=== PATIENT | female | born 1950 | race Caucasian/White ===

== ENCOUNTER 2021-03-01 12:50 | Day surgery (SDC) | payer MEDICARE, OTHER ==
[~2021-03-01] VITALS: Ht 165.1 cm; Wt 82.5 kg
[2021-03-01] MEDS ORDERED: LEVO-T100 MC1 PO (13:07)
[2021-03-01] MEDS ORDERED: LOSA25 (13:22)
--- NOTE | 2021-03-01 14:54 | NUR ---
03/01/21 1454 Sharyn Castillo LATE ENTRY----DURING THE PROCEDURE THE PATIENT WAS WRETCHING AND ZOFRAN WAS GIVEN. SHE DID NOT HAVE ANY VOMIT BUT DID HAVE SOME CLEAR MUCOUS THAT WAS SUCTIONED. THE WRETCHING STOPPED AND PROCEDURE WAS COMPLETED. AT THE END OF THE PROCEDURE THE PATIENT WAS JUST WAKING UP AND SHE VOMITED UP LARGE AMOUNT OF YELLOW BILE. SHE WAS SUCTIONED AND ON HER SIDE AND OXYGEN SATURATIONS STAYED STEADY AND STABLE WITH NO DROP.
== END 2021-03-01 14:50 | disposition home or self-care (01) ==
LOC: ORSCSDS 12:50
PROVIDERS: Surgery
PROC: 0DBP8ZX Excision of Rectum, Via Natural or Artificial Opening Endoscopic, Diagnostic (ICD-10-PCS; principal; 2021-03-01 14:00)
DX: Z12.11 Encounter for screening for malignant neoplasm of colon (principal); K62.1 Rectal polyp; I10 Essential (primary) hypertension; E03.9 Hypothyroidism, unspecified; E66.9 Obesity, unspecified; Z68.30 Body mass index [BMI] 30.0-30.9, adult; Z87.891 Personal history of nicotine dependence; Z79.899 Other long term (current) drug therapy
CPT/HCPCS: 88305; J2405; J2704; J7120

== ENCOUNTER 2022-04-05 10:00 | Day surgery (SDC) | payer MEDICARE, OTHER ==
[~2022-04-05] VITALS: Ht 165.1 cm; Wt 78.1 kg
[~2022-04-05 10:00] MED LIST: LEVO-T100 MC1 PO; LOSA25
[2022-04-05] MEDS ORDERED: CLIMARA1 EACH (10:35)
--- NOTE | 2022-04-05 11:38 | NUR ---
04/05/22 1138 Bruno Araiza 0.15 ML OF EPI 1MG /ML ADDED TO 30ML BUPIVICAINE 0.5% TO CREATE A SOLUTION OF BUPIVICAINE 0.5% WITH EPI 1:200,000.
--- NOTE | 2022-04-05 12:54 | NUR ---
04/05/22 1254 Philly Soto REPORT FROM CHERYL CARRASCO. PT REPORTS CONTINUING NAUSEA. MEDICATED WITH REGLAN 10MG IVP PER ORDERS. PT DENIES FURTHER NEEDS. VSS. WILL CONTINUE TO MONITOR.
== END 2022-04-05 13:23 | disposition home or self-care (01) ==
LOC: ORSCSDS 10:00
PROVIDERS: Podiatrist Foot & Ankle Surgery
PROC: 0QSK04Z Reposition Left Fibula with Internal Fixation Device, Open Approach (ICD-10-PCS; principal; 2022-04-05 11:45)
DX: S82.62XA Displaced fracture of lateral malleolus of left fibula, initial encounter for closed fracture (principal); I10 Essential (primary) hypertension; Z87.891 Personal history of nicotine dependence; E03.9 Hypothyroidism, unspecified; Z79.899 Other long term (current) drug therapy
CPT/HCPCS: A9270; C1713; J0690; J1100; J2405; J2704; J2765; J3010

== ENCOUNTER 2022-11-13 08:14 | Day surgery (SDC) | payer MEDICARE, OTHER ==
[~2022-11-13] VITALS: Ht 165.1 cm; Wt 84.1 kg
[~2022-11-13 08:14] MED LIST changes: +CENTRUM SILVER1 EAC2 PO; +CLIMARA1 EACH; +Coq-1030 MG PO; +Vitamin D1000 UNI1 PO
--- NOTE | 2022-11-13 08:42 | NUR ---
11/13/22 0842 Sara Dickey AT 0840 PLEDGET AT 0841
== END 2022-11-13 10:20 | disposition home or self-care (01) ==
LOC: ORSCSDS 08:14
PROVIDERS: Ophthalmology
PROC: 08DK3ZZ Extraction of Left Lens, Percutaneous Approach (ICD-10-PCS; principal; 2022-11-13 09:30)
DX: H25.12 Age-related nuclear cataract, left eye (principal); I10 Essential (primary) hypertension; E03.9 Hypothyroidism, unspecified; E66.9 Obesity, unspecified; Z68.30 Body mass index [BMI] 30.0-30.9, adult; Z87.891 Personal history of nicotine dependence; Z79.899 Other long term (current) drug therapy
CPT/HCPCS: J2001; J2250; J3010; J3301; J7040; V2632

== ENCOUNTER 2023-04-22 16:18 | Inpatient (IN) | payer MEDICARE, OTHER ==
[~2023-04-22] VITALS: Ht 165.1 cm; Wt 83.2 kg
[2023-04-22 16:50] LABS: BASOPHILS ABSOLUTE AUTO 0.06 K/mm3 (0.00-0.23); BASOPHILS PERCENT AUTO 1 % (0-2); EOSINOPHILS ABSOLUTE AUTO 0.07 K/mm3 (0.00-0.68); EOSINOPHILS PERCENT AUTO 1 % (0-6); Hematocrit 39.4 % (33.0-51.0); Hemoglobin 13.7 g/dL (11.5-16.0); IMMATURE GRAN ABSOLUTE AUTO 0.02 K/mm3 (0.00-0.10); IMMATURE GRAN PERCENT AUTO 0 % (0-1); LYMPHOCYTES ABSOLUTE AUTO 2.38 K/mm3 (0.84-5.20); LYMPHOCYTES PERCENT AUTO 31 % (21-46); MONOCYTES ABSOLUTE AUTO 0.71 K/mm3 (0.16-1.47); MONOCYTES PERCENT AUTO 9 % (4-13); Mean Corpuscular HGB 31.4 pg (26.0-34.0); Mean Corpuscular HGB Conc 34.8 g/dL (31.5-36.5); Mean Corpuscular Volume 90 fL (80-100); Mean Platelet Volume 8.5 fL (9.1-12.4); NEUTROPHILS ABSOLUTE AUTO 4.52 K/mm3 (1.96-9.15); NEUTROPHILS PERCENT AUTO 58 % (41-73); Platelet Count 279 K/mm3 (150-400); RDW Standard Deviation 39.8 fL (35.1-46.3); Red Blood Cell Count 4.36 M/mm3 (3.80-5.20); White Blood Cell Count 7.76 K/mm3 (4.00-11.30)
[2023-04-22 17:11] LABS: Albumin, Blood 4.5 g/dL (3.4-5.0); Albumin/Globulin Ratio 1.2 (0.8-1.8); Bilirubin, Total 0.4 mg/dL (0.1-1.0); Bun/Creatinine Ratio 22.2 (12.0-20.0); Calcium, Blood 10.1 mg/dL (8.5-10.1); Creatinine, Blood 0.86 mg/dL (0.40-1.00); Globulin, Blood 3.6 g/dL (2.2-4.0); Potassium, Blood 3.8 mmol/L (3.5-5.5); Total Protein, Blood 8.1 g/dL (6.4-8.2)
[2023-04-22 19:52] LABS: Anti-Xa UFH, PHA Monitoring <0.10 IU/mL; International Normalized Ratio 0.98; Prothrombin Time Results 10.3 Sec (9.7-11.5)
[2023-04-22 20:54] VITALS: BP 159/82
[2023-04-23] VITALS (9 sets, daily range): BP systolic 109–157; BP diastolic 57–83
[2023-04-23 03:42] LABS: BASOPHILS ABSOLUTE AUTO 0.06 K/mm3 (0.00-0.23); BASOPHILS PERCENT AUTO 1 % (0-2); EOSINOPHILS ABSOLUTE AUTO 0.17 K/mm3 (0.00-0.68); EOSINOPHILS PERCENT AUTO 2 % (0-6); Hematocrit 36.5 % (33.0-51.0); Hemoglobin 12.8 g/dL (11.5-16.0); IMMATURE GRAN ABSOLUTE AUTO 0.04 K/mm3 (0.00-0.10); IMMATURE GRAN PERCENT AUTO 1 % (0-1); LYMPHOCYTES ABSOLUTE AUTO 3.26 K/mm3 (0.84-5.20); LYMPHOCYTES PERCENT AUTO 40 % (21-46); MONOCYTES ABSOLUTE AUTO 0.82 K/mm3 (0.16-1.47); MONOCYTES PERCENT AUTO 10 % (4-13); Mean Corpuscular HGB 32.2 pg (26.0-34.0); Mean Corpuscular HGB Conc 35.1 g/dL (31.5-36.5); Mean Corpuscular Volume 92 fL (80-100); Mean Platelet Volume 8.9 fL (9.1-12.4); NEUTROPHILS ABSOLUTE AUTO 3.82 K/mm3 (1.96-9.15); NEUTROPHILS PERCENT AUTO 47 % (41-73); Platelet Count 236 K/mm3 (150-400); RDW Standard Deviation 40.9 fL (35.1-46.3); Red Blood Cell Count 3.97 M/mm3 (3.80-5.20); White Blood Cell Count 8.17 K/mm3 (4.00-11.30)
[2023-04-23 04:07] LABS: Anion Gap 6 mmol/L (6-16); Blood Urea Nitrogen 16 mg/dL (8-24); Bun/Creatinine Ratio 19.9 (12.0-20.0); CHOL/HDL RATIO 4.4; CO2, Blood 23 mmol/L (21-32); Calcium, Blood 8.9 mg/dL (8.5-10.1); Chloride, Blood 113 mmol/L (98-108); Cholesterol 198 mg/dL (50-200); Glomerular Filtration Rate 79 (60-); Glucose, Blood 89 mg/dL (70-99); HDL Cholesterol 45 mg/dL (>39); LDL/HDL RATIO 2.9; Low Density Lipoprotein Chol 132 mg/dL (0-110); Potassium, Blood 3.9 mmol/L (3.5-5.5); Sodium, Blood 142 mmol/L (136-145); Triglycerides 105 mg/dL (30-160); Very Low Density Lipoprot Chol 21 mg/dL (6-32)
--- NOTE | 2023-04-23 06:47 | NUR ---
NOC SHIFT SUMMARY - Pt arrived via stretcher at 2053 from ED. Ambulated independently and steadily to the bed. VSS, SR on telemetry. Hep gtt and fluids started per provider order. No complaints of chest pain or discomfort. On RA, skin CDI. Educated pt on ignition risk and pt denies forms of ignition. NPO for cardiology evaluation this AM.
--- NOTE | 2023-04-23 17:39 | NUR ---
SHIFT SUMMARY ALERT AND ORIENTED. DENIED CHEST PAIN AND SOB. 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 PATIENT RETURNED TO ROOM AT 1600. R RADIAL SITE WITH TR BAND AND ARM BOARD IN PLACE. SITE WITHOUT REDNESS, SWELLING, ABLE TO MOVE R FINGERS, DENIES N/T. ARM SLING PLACED. POST PROCEDURE VITALS STABLE. TOLERATED WATER AND CARDIAC DIET. SPOUSE TO BEDSIDE AT DINNER TIME.
[2023-04-24 04:30] VITALS: BP 138/58
--- NOTE | 2023-04-24 05:53 | NUR ---
END OF SHIFT SUMMARY NO ACUTE EVENTS OVERNIGHT; SHE WAS ABLE TO SLEEP AND FEELS RESTED THIS AM. SHE IS A/O X4 AND MAKES HER NEEDS KNOWN; AMBULATES INDEPENDENTLY IN ROOM SAFELY. SPO2 >95% ON RA; NO C/O DYSPNEA. BP STABLE; NO C/O CHEST PAIN. TOLERATING PO INTAKE WELL. TR BAND TO RT RADIAL SITE REMOVED AT 2029 AND TEGADERM PLACED OVER SITE; SITE SHOWS SOME OOZING BUT NOT ENOUGH TO CHANGE THE BANDAGE; SHE IS COMPLIENT WITH WRIST RESTRICTIONS. SHE IS EAGER TO DISCHARGE TODAY. WILL REPORT TO AM RN WHEN AVAILABLE.
[2023-04-24 06:16] LABS: BASOPHILS ABSOLUTE AUTO 0.04 K/mm3 (0.00-0.23); BASOPHILS PERCENT AUTO 1 % (0-2); EOSINOPHILS ABSOLUTE AUTO 0.15 K/mm3 (0.00-0.68); EOSINOPHILS PERCENT AUTO 2 % (0-6); Hematocrit 37.5 % (33.0-51.0); Hemoglobin 13.3 g/dL (11.5-16.0); IMMATURE GRAN ABSOLUTE AUTO 0.03 K/mm3 (0.00-0.10); IMMATURE GRAN PERCENT AUTO 0 % (0-1); LYMPHOCYTES ABSOLUTE AUTO 1.61 K/mm3 (0.84-5.20); LYMPHOCYTES PERCENT AUTO 21 % (21-46); MONOCYTES ABSOLUTE AUTO 0.78 K/mm3 (0.16-1.47); MONOCYTES PERCENT AUTO 10 % (4-13); Mean Corpuscular HGB 31.8 pg (26.0-34.0); Mean Corpuscular HGB Conc 35.5 g/dL (31.5-36.5); Mean Corpuscular Volume 90 fL (80-100); Mean Platelet Volume 8.7 fL (9.1-12.4); NEUTROPHILS ABSOLUTE AUTO 4.93 K/mm3 (1.96-9.15); NEUTROPHILS PERCENT AUTO 65 % (41-73); Platelet Count 233 K/mm3 (150-400); RDW Coefficient Variation 11.8 % (11.7-14.2); RDW Standard Deviation 38.5 fL (35.1-46.3); Red Blood Cell Count 4.18 M/mm3 (3.80-5.20); White Blood Cell Count 7.54 K/mm3 (4.00-11.30)
[2023-04-24 06:32] LABS: Bun/Creatinine Ratio 16.5 (12.0-20.0); Calcium, Blood 9.5 mg/dL (8.5-10.1); Creatinine, Blood 0.79 mg/dL (0.40-1.00)
[2023-04-24 07:26] VITALS: BP 144/74
[2023-04-24] MEDS ORDERED: ASPI81CH PO (11:27)
[2023-04-24] MEDS ORDERED: METO25 PO (11:28)
[2023-04-24] MEDS ORDERED: ATOR40TA PO (11:28)
[2023-04-24] MEDS ORDERED: TICA90TA PO (11:29)
--- NOTE | 2023-04-24 12:34 | NUR ---
DISCHARGE SUMMARY ALERT, ORIENTED, AMB IND IN ROOM. TOLERATING REGULAR DIET AND LIQUIDS. VOIDING WELL. DENIES CHEST PAIN, REPORTED SOME MILD HEAVINESS OF BREATH, CXR CHECKED AND WAS NORMAL. VSS. R RADIAL SITE WNL. DISCHARGE ORDER GIVEN. DISCHARGE INSTRUCTIONS GIVEN TO PATIENT AND SPOUSE ON NEW MEDS, R RADIAL SITE CARE, AND FOLLOW UP APPTS.IV'S DC'D WNL. PATIENT LEFT UNIT AT 1240 VIA WHEELCHAIR FOR HOME.
== END 2023-04-24 12:46 | disposition home or self-care (01) | DRG 247 ==
LOC: ER 16:18 → PCU 20:00
PROVIDERS: Nurse Practitioner Acute Care; Physician Assistant; Student in an Organized Health Care Education/Training Program; ADMIT Internal Medicine
PROC: 027034Z Dilation of Coronary Artery, One Artery with Drug-eluting Intraluminal Device, Percutaneous Approach (ICD-10-PCS; principal; 2023-04-23)
PROC: 4A023N7 Measurement of Cardiac Sampling and Pressure, Left Heart, Percutaneous Approach (ICD-10-PCS; 2023-04-23)
PROC: B2111ZZ Fluoroscopy of Multiple Coronary Arteries using Low Osmolar Contrast (ICD-10-PCS; 2023-04-23)
PROC: B241ZZZ Ultrasonography of Multiple Coronary Arteries (ICD-10-PCS; 2023-04-23)
DX: I21.4 Non-ST elevation (NSTEMI) myocardial infarction (principal); I10 Essential (primary) hypertension; H26.9 Unspecified cataract; E03.9 Hypothyroidism, unspecified; I25.10 Atherosclerotic heart disease of native coronary artery without angina pectoris; E78.5 Hyperlipidemia, unspecified; I45.5 Other specified heart block; Z90.89 Acquired absence of other organs; Z87.81 Personal history of (healed) traumatic fracture; Z98.890 Other specified postprocedural states; Z98.41 Cataract extraction status, right eye; Z79.890 Hormone replacement therapy; Z79.899 Other long term (current) drug therapy; Z79.82 Long term (current) use of aspirin
CPT/HCPCS: 36415; 71046; 76937; 80048; 80053; 80061; 83735; 83880; 84484; 85025; 85347; 85520; 85610; 85730; 93005; 93010; 93454; 99152; 99153; 99285-25; A9270; C1725; C1769; C1874; C1887; C1894; C8929; C9600; J1644; J2250; J3010; J7030; J7050; Q9957; Q9967